=== PATIENT | female | born 1975 | race Caucasian/White ===

== ENCOUNTER → 2017-02-20 | Outpatient (CLI) | payer OTHER ==
--- NOTE | 2017-02-20 21:47 | CONS ---
DATE OF CONSULTATION: 02/20/2017 CONSULTATION/NEW PATIENT EVALUATION HISTORY OF PRESENT ILLNESS/SLEEP-WAKE EVALUATION: 42-year-old lady who has been evaluated in the sleep center for possible obstructive sleep apnea-hypopnea syndrome. SLEEP SCHEDULE: Patient's usual sleep schedule on working days is from 9:00 p.m. to 10:00 p.m. until 5:45/6:30 a.m., on weekends from around 11 to 12 midnight until 8 or 9:00 a.m. FALLING ASLEEP: No problem with falling asleep usually. No TV in bedroom. DURING SLEEP: Patient usually starts sleep in bed but then she has multiple awakenings from sleep to use restroom and after that she may have a problem to fall asleep in bed and she may sleep in the chair. During the sleep, according to her , and also during the eye surgery, she has been told that she has episodes of stopped breathing during sleep. DURING THE DAY/WAKE STATE: In the morning she wakes up tired, falling asleep during the day. Has problem with memory, concentration. [place] Sleepiness Scale increased to 10. She usually takes naps at noon on weekends because during working days she does not have time for the naps. PAST MEDICAL HISTORY: Positive for diabetes mellitus, gout. PAST SURGICAL HISTORY: 1. Cholecystectomy. 2. Breast reduction surgery. MEDICATIONS: 1. Metformin. 2. Glipizide. 3. Lisinopril. 4. Allopurinol. SOCIAL HISTORY: Positive for smoking about half pack a day for 20 years; quit about 2 years ago. Alcohol consumption: None. REVIEW OF SYSTEMS: Awakenings from sleep, sleepiness during the day. No fevers. No double vision. No recent chest pain. No shortness of breath. No abdominal pain. No bleeding episodes. No blood in urine. No seizure episodes. FAMILY HISTORY: Heart problems, sinus headaches, cancer. PHYSICAL EXAMINATION: GENERAL: lady without distress. VITAL SIGNS: BP 99/60, HR 89, RR 18, height 58-1/2 inches. Weight 263.01. BMI 54.0. Neck 16 inches in circumference. Temperature 98.3. Oxygen saturation at room air 95%. HEENT: PERRLA, EOMI evaluation of oropharynx practically, extremely low position of soft palate. NECK: Supple. No JVD. Thyroid is not palpable. LUNGS: Clear to percussion and to auscultation. Good air exchange. No wheezing or rhonchi. HEART: S1, S2 regular. No murmurs, gallops or rubs. ABDOMEN: Obese. Soft and nontender. Bowel sounds are present. No organomegaly appreciated. EXTREMITIES: No clubbing or cyanosis. AWNING CRAFTSPERSON: Awake, alert, and oriented x3. Cranial nerves 2 to 7 intact. There is no fasciculation or atrophy noted. No focal deficits observed. ASSESSMENT: 1. Witnessed episodes of stopped breathing during sleep, multiple awakenings from sleep, low position of soft palate, excessive sleepiness, [place] Sleepiness Scale increased to 10, obstructive sleep apnea-hypopnea syndrome. 2. Obesity, body mass index of 54.0. 3. ( ). PLAN: ( ) Sincerely, Jeremías Juan MD, PhD, FAASM. Diplomat of [place] [employer], Sleep Medicine Board by [place] [employer] [place] [employer] Energy Crop Farmer of [facility] [place]
--- NOTE | 2017-02-20 22:10 | CONS ---
DATE OF CONSULTATION: ADDENDUM: Add to impression: IMPRESSION: 1. Status post cholecystectomy. 2. Status post breast reduction. PLAN: 1. Polysomnography for evaluation of patient's breathing during sleep. 2. CPAP/BiPAP titration if sleep study confirms obstructive sleep apnea-hypopnea syndrome. 3. Preferable position during sleep on the side. 4. No driving if patient feels any sleepiness. Patient is aware of civil and criminal liability for unsafe driving. 5. I will see patient for follow-up visit to explain results of the testing and following plan. Thank you very much for referring this patient for consultation. Sincerely, Jeremías Juan MD, PhD, FAASM. Diplomat of [place] [employer], Sleep Medicine Board by [place] [employer] [employer] Breakdown Person of [facility] [place]
== END ==
LOC: SLEEP 16:25
PROVIDERS: ATTEND Internal Medicine
DX: G47.33 Obstructive sleep apnea (adult) (pediatric) (principal); E66.9 Obesity, unspecified; Z79.899 Other long term (current) drug therapy; Z87.891 Personal history of nicotine dependence; Z98.890 Other specified postprocedural states; Z90.49 Acquired absence of other specified parts of digestive tract
CPT/HCPCS: 99211

== ENCOUNTER → 2017-07-10 | Outpatient (CLI) | payer OTHER ==
--- NOTE | 2017-07-10 22:51 | PN ---
PROGRESS NOTE DATE OF SERVICE: 07/10/2017 This patient is a 42-year-old lady who has been followed in the sleep center for treatment of obstructive sleep apnea/hypopnea syndrome. Diagnostic sleep study showed obstructive sleep apnea with apnea-hypopnea index 10 and oxygen desaturation to 83.9%. I discussed the results of the sleep studies with the patient in detail. She had CPAP titration, and with titration her respiration was normalized. She received her CPAP unit at home with a pressure of 9 cm of water, but she had difficulties with the usage of the machine. She does not like it. She does not like the mask. She does not feel comfortable with that. She used it only for 1 night. The patient is preparing for bariatric surgery, and treatment with CPAP is recommended as a part of preparation for bariatric surgery ( ) obstructive sleep apnea. MEDICATIONS: 1. Allopurinol. 2. Lisinopril. 3. Glipizide. 4. Metformin. PHYSICAL EXAM: This patient is a 42-year-old lady without distress. VITAL SIGNS: BP 102/72, HR 94, RR 16, weight 264, temperature 98.3, oxygen saturation at room air 96%. HEENT: PERRLA, EOMI. Evaluation of oropharynx showed tongue protrudes midline; extremely low position of soft palate. NECK: Supple. No JVD. Thyroid is not palpable. LUNGS: Clear to percussion and to auscultation. Good air exchange. No wheezing or rhonchi. HEART: S1, S2 irregularly irregular. ABDOMEN: Obese. EXTREMITIES: No clubbing or cyanosis. SOCIAL GROUP WORKER: Awake, alert and oriented x3. Cranial nerves 2 to 7 intact. There is no fasciculation or atrophy noted. No focal deficits observed. IMPRESSION: 1. Mild obstructive sleep apnea-hypopnea syndrome, apnea-hypopnea index 10 with oxygen desaturation to 83.9%. The patient cannot use the machine at the present time because it does not feel comfortable for her. 2. Obesity.0 Patient is preparing for bariatric surgery. 3. Diabetes mellitus. 4. History of gout. PLAN: 1. I again discussed with the patient the recommendation to use the machine every night because it is necessary at the present time as a part of preparation for bariatric surgery. 2. I will decrease pressure down to 6 cm of water, possibly to make it more comfortable for the patient to use CPAP. 3. Sleep hygiene with regular time in bed for at least 8 hours. 4. Prescription to continue trial with CPAP for another 3 months. 5. No driving if feeling any sleepiness. 6. We discussed with the patient different types of masks which we could use, and it looks like the one she has now is her preference. Thank you very much for allowing me to participate in the management of your patient. Sincerely, Jeremías Juan MD, PhD, FAASM Diplomat of [place] [employer] [place] [employer] Medicine Validation Architect of [facility] [place] MMODL / YG: [id number] /
== END | disposition home or self-care (01) ==
LOC: SLEEP 15:07
PROVIDERS: ATTEND Internal Medicine
DX: G47.33 Obstructive sleep apnea (adult) (pediatric) (principal); E66.9 Obesity, unspecified; E11.9 Type 2 diabetes mellitus without complications; Z79.899 Other long term (current) drug therapy

== ENCOUNTER → 2017-12-27 | Outpatient (CLI) | payer OTHER ==
[2017-12-27 12:23] LABS: Basophils # (A) 0.1 k/uL (0-0.2); Basophils % (A) 1 %; Eosinophils % (A) 0 %; HCT 39.1 % (34.0-46.0); HGB 12.8 gm/dL (11.4-16.0); Lymphocytes # (A) 3.1 k/uL (1.0-4.8); Lymphocytes % (A) 31 %; MCH 29.5 pg (25.0-35.0); MCHC 32.7 g/dL (31.0-37.0); MCV 90.4 fL (80.0-100.0); Mean Platelet Volume 6.5; Monocytes # (A) 0.6 k/uL (0-1.0); Monocytes % (A) 6 %; Neutrophils % (A) 61 %; Platelet Count 299 k/uL (150-450); RBC 4.33 m/uL (3.80-5.40); WBC 9.9 k/uL (3.8-10.6)
[2017-12-27 12:32] LABS: ALT 37 U/L (9-52); AST 28 U/L (14-36); Alkaline Phosphatase 111 U/L (38-126); Anion Gap 13 mmol/L; Blood Urea Nitrogen 11 mg/dL (7-17); Calcium 9.6 mg/dL (8.4-10.2); Carbon Dioxide 25 mmol/L (22-30); Chloride 103 mmol/L (98-107); Cholesterol 166 mg/dL (<200); Glucose 143 mg/dL (74-99); HDL Cholesterol 39 mg/dL (40-60); Potassium 4.6 mmol/L (3.5-5.1); Sodium 141 mmol/L (137-145); Total Bilirubin 0.3 mg/dL (0.2-1.3); Uric Acid 5.7 mg/dL (3.7-7.4)
[2017-12-27 13:01] LABS: Triglycerides 587 mg/dL (<150)
[2017-12-27 20:13] LABS: Hemoglobin A1C 5.6 % (4.0-6.0)
== END | disposition home or self-care (01) ==
LOC: LABWHC1 11:11
PROVIDERS: ATTEND Family Medicine
DX: E11.65 Type 2 diabetes mellitus with hyperglycemia (principal); E78.2 Mixed hyperlipidemia; I10 Essential (primary) hypertension; Z71.3 Dietary counseling and surveillance; Z71.82 Exercise counseling; Z87.39 Personal history of other diseases of the musculoskeletal system and connective tissue
CPT/HCPCS: 36415; 80053; 80061; 82306; 83036; 83721; 84443; 84550; 85025

== ENCOUNTER → 2017-12-27 | Outpatient (CLI) | payer OTHER ==
--- NOTE | 2017-12-29 12:15 | MM ---
Reason for exam: screening (asymptomatic). Last mammogram was performed 2 years and 3 months ago. History: Family history of breast cancer in maternal aunt. Physical Findings: A clinical breast exam by your physician is recommended on an annual basis and results should be correlated with mammographic findings. MG Screening Mammo w CAD Bilateral CC, MLO, and XCCL view(s) were taken. Prior study comparison: September 18, 2015, mammogram, performed at [facility]. There are scattered fibroglandular densities. No suspicious abnormality. No significant changes when compared with prior studies. ASSESSMENT: Negative, BI-RAD 1 RECOMMENDATION: Routine screening mammogram of both breasts in 1 year.
== END | disposition home or self-care (01) ==
LOC: RADMAMWWP 11:08
PROVIDERS: ATTEND Obstetrics & Gynecology
DX: Z12.31 Encounter for screening mammogram for malignant neoplasm of breast (principal)
CPT/HCPCS: 77067

== ENCOUNTER 2019-01-07 14:00 | Emergency (ER) | payer OTHER ==
[2019-01-07 14:35] VITALS: RESP 18; TEMP 98.1
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
[2019-01-07] MEDS ORDERED: ACETAMINOPHEN TAB 325 MG TAB PO STA (15:51)
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
[2019-01-07 16:45] VITALS: BP 123/67; PULSE 64
== END 2019-01-07 16:33 | disposition home or self-care (01) ==
LOC: EC 14:00
DX: S29.012A Strain of muscle and tendon of back wall of thorax, initial encounter (principal); R51 Headache; M43.6 Torticollis; Z90.49 Acquired absence of other specified parts of digestive tract; Z98.890 Other specified postprocedural states; V49.49XA Driver injured in collision with other motor vehicles in traffic accident, initial encounter; Y92.410 Unspecified street and highway as the place of occurrence of the external cause; Y99.0 Civilian activity done for income or pay
CPT/HCPCS: 70450; 72070; 72125; 99284

== ENCOUNTER → 2019-01-25 | Outpatient (CLI) | payer OTHER ==
--- NOTE | 2019-01-25 10:17 | US ---
EXAMINATION TYPE: US transvaginal DATE OF EXAM: 01/25/2019 COMPARISON: OB Ultrasound 2008 CLINICAL HISTORY: R10.2 Pelvic Pain. Pt states LLQ pain that has recently subsided TECHNIQUE: Transvaginal (TV). Transvaginal sonographic images of the pelvis were acquired. Date of LMP: 01/06/2019 EXAM MEASUREMENTS: Uterus: 7.7 x 4.0 x 5.1 cm Endometrial Stripe: 0.9 cm Right Ovary: 2.4 x 1.8 x 2.7 cm Left Ovary: 3.2 x 2.2 x 3.1 cm 1. Uterus: Anteverted Heterogeneous, Nabothian cysts in cervix, cystic area left of endo= 0.6 x 0. 4 cm 2. Endometrium: wnl 3. Right Ovary: wnl 4. Left Ovary: Probable involuting cyst= 1.6 x 1.8 x 1.9 cm 5. Bilateral Adnexa: wnl 6. Posterior cul-de-sac: wnl Multiple small nabothian cysts are seen throughout the cervix on initial images. Uterus is heterogene ous. Endometrium is not suspiciously thickened for secretory phase of menstrual cycle. No free fluid is seen in pelvic cul-de-sac. Both ovaries are identified. Left ovary is slightly larger than right ovary. There is irregular rim-e nhancing rim hypervascular 1.8 cm hypoechoic lesion with central anechoic area favoring an involuting corpus luteal cyst from recent ovulation. No suspicious extraovarian adnexal masses are present. IMPRESSION: Suspect involuting 1.8 cm corpus luteal cyst.
--- NOTE | 2019-01-27 09:02 | MM ---
Reason for exam: screening (asymptomatic). Last mammogram was performed 1 year and 1 month ago. History: Family history of breast cancer in maternal aunt. Reductions of both breasts. Took hormonal contraceptives for 2 years. Physical Findings: A clinical breast exam by your physician is recommended on an annual basis and results should be correlated with mammographic findings. MG Screening Mammo w CAD Bilateral CC and MLO view(s) were taken. Prior study comparison: December 27, 2017, bilateral MG screening mammo w CAD. September 18, 2015, mammogram, performed at [facility]. There are scattered fibroglandular densities. No significant changes when compared with prior studies. ASSESSMENT: Negative, BI-RAD 1 RECOMMENDATION: Routine screening mammogram of both breasts in 1 year.
== END | disposition home or self-care (01) ==
LOC: RADUSWWP 08:44
PROVIDERS: ATTEND Family Medicine
DX: Z12.31 Encounter for screening mammogram for malignant neoplasm of breast (principal); R10.2 Pelvic and perineal pain
CPT/HCPCS: 76830; 77067

== ENCOUNTER → 2020-10-11 | Outpatient (CLI) | payer OTHER | END | disposition home or self-care (01) | LOC: LABWHC1 16:07 | PROVIDERS: ATTEND Emergency Medicine | DX: Z20.828 Contact with and (suspected) exposure to other viral communicable diseases (principal) | CPT/HCPCS: U0003; C9803 ==

== ENCOUNTER → 2021-06-13 | Outpatient (CLI) | payer OTHER ==
--- NOTE | 2021-06-13 10:48 | XR ---
EXAMINATION TYPE: XR foot complete LT DATE OF EXAM: 06/13/2021 COMPARISON: NONE HISTORY: Pain TECHNIQUE: Three views are submitted. FINDINGS: The osseous structures are intact. There is no acute fracture or dislocation. Joint spaces are p reserved. Soft tissue edema overlying the distal first digit. Calcaneal spurs noted. IMPRESSION: 1. No acute fracture or dislocation. If symptoms persist, follow-up exam in 7 to 10 days could be ob tained.
== END | disposition home or self-care (01) ==
LOC: RADXRMAIN 10:20
PROVIDERS: ATTEND Podiatrist Foot Surgery
DX: M79.672 Pain in left foot (principal)

== ENCOUNTER → 2021-06-25 | Outpatient (CLI) | payer OTHER ==
--- NOTE | 2021-06-27 13:45 | MM ---
Reason for exam: screening (asymptomatic). Last mammogram was performed 2 years and 5 months ago. History: Family history of breast cancer in maternal aunt. Reductions of both breasts. Took hormonal contraceptives for 2 years. Physical Findings: A clinical breast exam by your physician is recommended on an annual basis and results should be correlated with mammographic findings. MG Screening Mammo w CAD Bilateral CC, MLO, and XCCL view(s) were taken. CV view(s) were taken of the right breast. Prior study comparison: January 25, 2019, bilateral MG screening mammo w CAD. December 27, 2017, bilateral MG screening mammo w CAD. There are scattered fibroglandular densities. Stable benign calcifications left breast. There is no discrete abnormality. No significant changes when compared with prior studies. ASSESSMENT: Benign, BI-RAD 2 RECOMMENDATION: Routine screening mammogram of both breasts in 1 year.
== END | disposition home or self-care (01) ==
LOC: RADMAMWWP 09:15
PROVIDERS: ATTEND Family Medicine
DX: Z12.31 Encounter for screening mammogram for malignant neoplasm of breast (principal); Z79.3 Long term (current) use of hormonal contraceptives; Z80.3 Family history of malignant neoplasm of breast
CPT/HCPCS: 77067

== ENCOUNTER → 2021-12-25 | Outpatient (CLI) | payer OTHER ==
[2021-12-25 11:39] VITALS: BP 128/88; PULSE 90; RESP 16; TEMP 98.2; BMI 48.6
--- NOTE | 2021-12-25 13:33 | P.BASOAP ---
Subjective Progress Note Date: 12/25/21 Principal diagnosis: Morbid obesity Patient presents to the bariatric clinic for follow-up. She has not been seen by myself for quite some time. Patient had her sleeve gastrectomy performed in 2018 at [facility]. Patient had repair hiatal hernia done at that time as well. Initial weight 272. Patient got down to around 200 pounds. Currently weight has gone up lately to 241. Patient has had worsening reflux as well. Takes omeprazole 20 mg every morning. Denies dysphagia or vomiting. Says she is hungry sometimes soon after mealtime. Patient has not had recent labs done. No abdominal pain. Patient is worried her diabetes is coming back again. Objective - Vital Signs Vital signs: Vital Signs Temp 98.2 F 12/25/21 11:33 Pulse 90 12/25/21 11:33 Resp 16 12/25/21 11:33 BP 128/88 12/25/21 11:33 Pulse Ox Intake & Output 12/24/21 12/25/21 12/25/21 18:59 06:59 18:59 Weight 109.316 kg - Exam Abdomen: Soft, nontender, nondistended Assessment/Plan (1) Morbid obesity Narrative/Plan: 46-year-old female with morbid obesity. Patient's BMI has increased since her last visit. Patient has had worsening reflux as well. We'll check annual lab work at this time. Patient will increase her omeprazole to 20 mg twice a day. We'll schedule patient for upper endoscopy to evaluate for recurrent hiatal hernia or stricture formation. Patient is interested in conversion to gastric bypass. We'll consider tertiary care referral after upper endoscopy and lab work obtained. Plan: Date: 12/25/21 Initial Weight: 123.377 kg Initial BMI: 54.9 Current Weight: 109.316 kg Current BMI: 48.6 Type of Surgery: Vertical Sleeve Gastrectomy Total Volume in Band: Previous Volume: Volume Removed: Volume Added: Band Size:
[2021-12-25 18:20] LABS: HCT 39.4 % (37.2-46.3); HGB 12.9 g/dL (12.0-15.0); MCH 29.7 pg (27.0-32.0); MCHC 32.7 g/dL (32.0-37.0); MCV 90.6 fL (80.0-97.0); Mean Platelet Volume 9.7 fL (9.5-12.2); NRBC Per 100 WBC 0 /100 WBCS (0.0-0.0); Platelet Count 254 X 10*3/uL (140-440); RBC 4.35 X 10*6/uL (4.10-5.20); RDW 12.5 % (11.5-14.5); WBC 9.01 X 10*3/uL (4.50-10.00)
[2021-12-25 19:16] LABS: ALT 25 U/L (8-44); AST 23 U/L (13-35); African American GFR (CKD) 122.1 (60.0-200.0); Albumin 4.3 g/dL (3.8-4.9); Albumin/Globulin Ratio 1.65 (1.60-3.17); Alkaline Phosphatase 104 U/L (41-126); BUN/Creat Ratio 14.86 Ratio (12.00-20.00); Blood Urea Nitrogen 10.4 mg/dL (9.0-27.0); Carbon Dioxide 23.3 mmol/L (20.0-27.5); Chloride 98 mmol/L (96-109); Globulin 2.6 g/dL (1.6-3.3); Glucose 126 mg/dL (70-110); Iron 92 ug/dL (50-170); Non-African American GFR(CKD) 105.4 (60.0-200.0); Potassium 4.1 mmol/L (3.5-5.5); Sodium 135 mmol/L (135-145); Total Protein 6.9 g/dL (6.2-8.2)
[2021-12-25 19:43] LABS: Folate, Serum >20.00 ng/mL (4.40-31.00)
== END ==
LOC: BARWHC3 11:04
PROVIDERS: ATTEND Surgery
DX: E66.01 Morbid (severe) obesity due to excess calories (principal); E55.9 Vitamin D deficiency, unspecified; K90.89 Other intestinal malabsorption; K21.9 Gastro-esophageal reflux disease without esophagitis; Z98.84 Bariatric surgery status; Z68.42 Body mass index [BMI] 45.0-49.9, adult; Z79.899 Other long term (current) drug therapy
CPT/HCPCS: 84425; 80053; 82607; 82746; 83540; 85027; 82306; 83036; G0463; 99211

== ENCOUNTER 2022-01-15 10:52 | Day surgery (SDC) | payer OTHER ==
[2022-01-10 12:46] VITALS: BMI 48.4
[~2022-01-15 10:52] MED LIST: LACTATED RINGERS 1,000 ML IV SCH; LIDOCAINE 1% (10MG/ML) FOR IV START INTRADERMA PRN
[2022-01-15 11:21] VITALS: RESP 16; TEMP 97.5
[2022-01-15] MEDS ORDERED: LIDOCAINE 1% INJ 10MG/ML (20 ML MDV) ONE (11:38)
[2022-01-15] MEDS ORDERED: PROPOFOL 10 MG/ML 20 ML VIAL IV ONE (11:38)
[2022-01-15 11:43] LABS: Glucose,Whole Blood 112 mg/dL (75-99)
--- NOTE | 2022-01-15 11:43 | P.GSHP ---
History of Present Illness H&P Date: 01/15/22 Chief Complaint: GERD 46-year-old female here today for upper endoscopy. Please refer to recent bariatric clinic note. Patient with history of prior sleeve gastrectomy and hiatal hernia repair. Patient has had weight gain as well. Taking omeprazole once daily. Past Medical History Past Medical History: GERD/Reflux History of Any Multi-Drug Resistant Organisms: None Reported Past Surgical History: Bariatric Surgery, Breast Surgery, Cholecystectomy Additional Past Surgical History / Comment(s): breast reduction. sleeve gastrectomy 2018 [facility]. EGD Past Anesthesia/Blood Transfusion Reactions: No Reported Reaction Smoking Status: Former smoker - Past Family History Mother Family Medical History: No Reported History Medications and Allergies Home Medications Medication Instructions Recorded Confirmed Type Omeprazole 20 mg PO DAILY 12/25/21 01/15/22 History Allergies Allergy/AdvReac Type Severity Reaction Status Date / Time No Known Allergies Allergy Verified 01/15/22 11:12 Surgical - Exam Vital Signs Temp Pulse Resp BP Pulse Ox 97.5 F L 78 16 136/60 95 01/15/22 11:08 01/15/22 11:08 01/15/22 11:08 01/15/22 11:08 01/15/22 11:08 Physical exam: General: Well-developed, well-nourished HEENT: Normocephalic, sclerae nonicteric Abdomen: Nontender, nondistended Extremities: No edema Neuro: Alert and oriented Assessment and Plan (1) GERD (gastroesophageal reflux disease) Narrative/Plan: Will proceed with upper endoscopy at this time. Current Visit: Yes Status: Acute Code(s): K21.9 - GASTRO-ESOPHAGEAL REFLUX DISEASE WITHOUT ESOPHAGITIS SNOMED Code(s): 182531915
--- NOTE | 2022-01-15 11:50 | P.PCN ---
Date of Procedure: 01/15/22 Procedure(s) Performed: Preoperative Dx: GERD Postoperative Dx: Mild gastritis, post sleeve gastrectomy, small hiatal hernia suspected Procedure: EGD with Bx Anesthesia: Sedation Endoscopist: Dr. Choudhary Specimens: Antrum Endoscopic Procedure: The patient was on the endoscopy table in the left decubitus position. The Olympus gastroscope was inserted into the oropharynx and passed under direct visualization to the region of the third portion of the duodenum. From that point the scope was slowly withdrawn inspecting all surfaces carefully. There were no neoplastic inflammatory or polypoid lesions throughout the duodenum. The pylorus was widely patent. The stomach was carefully inspected. There was mild gastritis present. A biopsy of the antrum took place to rule out H. pylori. Retroflexion could not be performed because of the prior sleeve gastrectomy. The GE junction was visualized as we were looking down the esophagus and appeared to be 1.5-2 cm above the diaphragmatic hiatus. Difficult to visualize the exact location of the hiatus given the patient's prior sleeve gastrectomy. There were no inflammatory changes throughout the esophagus. The patient was then taken to the recovery room in stable condition per anesthesia guidelines. Recommendations: Await biopsy results. Will order CT chest to better evaluate for possible recurrent hiatal hernia.
[2022-01-15 11:57] VITALS: BP 126/84; PULSE 83
== END 2022-01-15 12:42 | disposition home or self-care (01) ==
LOC: ORWHC2ENDO 10:52
PROVIDERS: ATTEND Surgery
DX: K29.50 Unspecified chronic gastritis without bleeding (principal); K21.9 Gastro-esophageal reflux disease without esophagitis; Z98.84 Bariatric surgery status; Z98.890 Other specified postprocedural states; Z87.891 Personal history of nicotine dependence; Z79.899 Other long term (current) drug therapy; E66.9 Obesity, unspecified; Z68.42 Body mass index [BMI] 45.0-49.9, adult
CPT/HCPCS: 81025; 88305; 43239; J2001; J2704

== ENCOUNTER → 2022-09-12 | Outpatient (CLI) | payer OTHER ==
[2022-09-12 15:30] LABS: ALT 15 U/L (8-44); AST 17 U/L (13-35); Albumin 4.4 g/dL (3.8-4.9); Albumin/Globulin Ratio 1.41 (1.60-3.17); Alkaline Phosphatase 86 U/L (41-126); Bilirubin, Conjugated <0.20 mg/dL (0.20-0.40); Chol/HDL Ratio 4.93 Ratio; Globulin 3.1 g/dL (1.6-3.3); LDL Cholesterol,Calculated 127.8 mg/dL (0.0-131.0); Total Protein 7.6 g/dL (6.2-8.2)
== END | disposition home or self-care (01) ==
LOC: LABWHC1 10:14
PROVIDERS: ATTEND Internal Medicine Gastroenterology
DX: E66.01 Morbid (severe) obesity due to excess calories (principal)
CPT/HCPCS: 36415; 80061; 80076; 82306; 83036

== ENCOUNTER → 2023-06-02 | Outpatient (CLI) | payer OTHER ==
--- NOTE | 2023-06-02 14:59 | MM ---
Reason for Exam: Screening (asymptomatic). Last mammogram was performed 2 year(s) and 0 month(s) ago. Patient History: Menarche at age 13. First Full-Term at age 26. Patient used Hormonal Contraceptives for 2 years. Bilateral Reduction. Maternal aunt had breast cancer. Last menstrual period: 05/13/2023 Risk Values: Rayna 5 year model risk: 0.8%. NCI Lifetime model risk: 9.3%. Prior Study Comparison: 12/27/2017 Bilateral Screening Mammogram, [facility]. 01/25/2019 Bilateral Screening Mammogram, [facility]. 06/25/2021 Bilateral Screening Mammogram, [facility]. Tissue Density: There are scattered fibroglandular densities. Findings: Analyzed By CAD. There is no suspicious group of microcalcifications or new suspicious mass in either breast. Overall Assessment: Negative, BI-RAD 1 Management: Screening Mammogram of both breasts in [address] [facility] will attempt to contact patient to return for supplemental views and ultrasound if indicated. Patient should continue monthly self-breast exams. A clinical breast exam by your physician is recommended on an annual basis. This exam should not preclude additional follow-up of suspicious palpable abnormalities. Note on Rayna scores and lifetime risk: 1. A Rayna score greater than 3% is considered moderate risk. If this is the case, consider specialist referral to assess eligibility for a risk reducing agent. 2. If overall lifetime risk for the development of breast cancer is 20% or higher, the patient may qualify for future screening with alternating mammogram and breast MRI. Electronically signed and approved by: Maxime Connelly DO
== END | disposition home or self-care (01) ==
LOC: RADMAMWWP 07:58
PROVIDERS: ATTEND Family Medicine
DX: Z12.31 Encounter for screening mammogram for malignant neoplasm of breast (principal); Z80.3 Family history of malignant neoplasm of breast
CPT/HCPCS: 77063; 77067

== ENCOUNTER → 2024-06-15 | Outpatient (CLI) | payer BC ==
--- NOTE | 2024-07-02 20:42 | MM ---
Reason for Exam: Screening (asymptomatic). Last screening mammogram was performed 12 month(s) ago. Patient History: Menarche at age 13. First Full-Term at age 26. Patient used Hormonal Contraceptives for 2 years. Bilateral Reduction. Maternal aunt had breast cancer. Risk Values: Rayna 5 year model risk: 0.9%. NCI Lifetime model risk: 9.2%. Prior Study Comparison: 01/25/2019 Bilateral Screening Mammogram, [facility]. 06/25/2021 Bilateral Screening Mammogram, [facility]. 06/02/2023 Bilateral MG 3D screening mammo w/cad, [facility]. Tissue Density: There are scattered areas of fibroglandular density. Findings: Analyzed By CAD. There is no suspicious group of microcalcifications or new suspicious mass in either breast. Overall Assessment: Negative, BI-RAD 1 Management: Screening Mammogram of both breasts in 1 year. . Patient should continue monthly self-breast exams. A clinical breast exam by your physician is recommended on an annual basis. This exam should not preclude additional follow-up of suspicious palpable abnormalities. Note on Rayna scores and lifetime risk: 1. A Rayna score greater than 3% is considered moderate risk. If this is the case, consider specialist referral to assess eligibility for a risk reducing agent. 2. If overall lifetime risk for the development of breast cancer is 20% or higher, the patient may qualify for future screening with alternating mammogram and breast MRI. Electronically signed and approved by: Bean Garcia M.D. Radiologist
== END | disposition home or self-care (01) ==
LOC: RADMAMWWP 16:44
PROVIDERS: ATTEND Family Medicine
DX: Z12.31 Encounter for screening mammogram for malignant neoplasm of breast (principal); Z80.3 Family history of malignant neoplasm of breast; R92.323 Mammographic fibroglandular density, bilateral breasts
CPT/HCPCS: 77063; 77067

== ENCOUNTER 2024-10-24 11:20 | Emergency (ER) | payer BC ==
--- NOTE | 2024-10-24 11:39 | ED ---
General Adult HPI - General Chief complaint: Abdominal Pain Stated complaint: L flank pain Time Seen by Provider: 10/24/24 11:38 Source: patient, RN notes reviewed Mode of arrival: ambulatory Limitations: no limitations - History of Present Illness Initial comments: Quick note: 49-year-old female presents to the emergency department for evaluation of left side pain. Patient states that this started this morning when she woke up. She also notes blood in her urine but is unsure if it is menstrual related. Denies urinary frequency or burning with urination. Denies nausea, vomiting. Denies fever. - Related Data Home Medications Medication Instructions Recorded Confirmed Omeprazole 20 mg PO DAILY 12/25/21 01/15/22 Previous Rx's Medication Instructions Recorded HYDROcodone/APAP 5-325MG [Beatty 5] 1 each PO Q6HR PRN #12 tab 10/24/24 Ketorolac [Toradol] 10 mg PO Q8HR #15 tab 10/24/24 Tamsulosin [Flomax] 0.4 mg PO DAILY #7 cap 10/24/24 Allergies Allergy/AdvReac Type Severity Reaction Status Date / Time Penicillins Allergy Rash/Hives Verified 10/24/24 11:25 Review of Systems ROS Statement: Those systems with pertinent positive or pertinent negative responses have been documented in the HPI. ROS Other: All systems not noted in ROS Statement are negative. Past Medical History Past Medical History: GERD/Reflux History of Any Multi-Drug Resistant Organisms: None Reported Past Surgical History: Bariatric Surgery, Breast Surgery, Cholecystectomy Additional Past Surgical History / Comment(s): breast reduction. sleeve gastrectomy 2018 [facility]. EGD Past Anesthesia/Blood Transfusion Reactions: No Reported Reaction Past Psychological History: No Psychological Hx Reported Smoking Status: Former smoker Past Alcohol Use History: None Reported Past Drug Use History: Marijuana - Past Family History Mother Family Medical History: No Reported History General Exam - General Exam Comments Initial Comments: Visual Physical Exam Vital signs reviewed General: Well-appearing, nontoxic, no acute distress. Head: Normocephalic, atraumatic Eyes: PERRLA, EOMI ENT: Airway patent Chest: Nonlabored breathing Skin: No visual rash, normal skin tone Neuro: Alert and oriented 3 Musculoskeletal: No gross abnormalities Limitations: no limitations Course Vital Signs 10/24/24 10/24/24 11:22 14:37 Temperature 98.2 F 98.1 F Pulse Rate 71 70 Respiratory 20 18 Rate Blood Pressure 142/87 123/76 O2 Sat by Pulse 97 99 Oximetry Medical Decision Making - Medical Decision Making Quick note preformed and electronically signed by ELLIOT Masters-C Was pt. sent in by a medical professional or institution (ELLIOT Rosario, [facility], urgent care, hospital, or detention...) When possible be specific @ -[No] Did you speak to anyone other than the patient for history (EMS, parent, family, police, friend...)? What history was obtained from this source @ -[No] Did you review nursing and triage notes (agree or disagree)? Why? @ -[I reviewed and agree with nursing and triage notes] Were old charts reviewed (outside hosp., previous admission, EMS record, old EKG, old radiological studies, urgent care reports/EKG's, detention records)? Report findings @ -[No old charts were reviewed] Differential Diagnosis (chest pain, altered mental status, abdominal pain women, abdominal pain men, vaginal bleeding, weakness, fever, dyspnea, syncope, headache, dizziness, GI bleed, back pain, seizure, CVA, palpatations, mental health, musculoskeletal)? @ -[not applicable] EKG interpreted by me (3pts min.). @ -[As above] X-rays interpreted by me (1pt min.). @ -[None done] CT interpreted by me (1pt min.). @ -[None done] U/S interpreted by me (1pt. min.). @ -[None done] What testing was considered but not performed or refused? (CT, X-rays, U/S, labs)? Why? @ -[None] What meds were considered but not given or refused? Why? @ -[None] Did you discuss the management of the patient with other professionals (professionals i.e. E[facility] Rosario, [facility], lab, RT, psych nurse, social work administrator, installment account checker, teacher, marketing and communications officer, rn case management)? Give summary @ -[No] Was smoking cessation discussed for >3mins.? @ -[No] Was critical care preformed (if so, how long)? @ -[No] Were there social determinants of health that impacted care today? How? (Homelessness, low income, unemployed, alcoholism, drug addiction, transportation, low edu. Level, literacy, decrease access to med. care, assisted, rehab)? @ -[No] Was there de-escalation of care discussed even if they declined (Discuss DNR or withdrawal of care, Hospice)? DNR status @ -[No] What co-morbidities impacted this encounter? (DM, HTN, Smoking, COPD, CAD, Cancer, CVA, ARF, Chemo, Hep., AIDS, mental health diagnosis, sleep apnea, mor bid obesity)? @ -[None] Was patient admitted / discharged? Hospital course, mention meds given and route, prescriptions, significant lab abnormalities, going to OR and other pertinent info. @ -[hospital course] Undiagnosed new problem with uncertain prognosis? @ -[No] Drug Therapy requiring intensive monitoring for toxicity (Heparin, Nitro, Insulin, Cardizem)? @ -[No] Were any procedures done? @ -[No] Diagnosis/symptom? @ -[default] Acute, or Chronic, or Acute on Chronic? @ -[default] Uncomplicated (without systemic symptoms) or Complicated (systemic symptoms)? @ -[default] Side effects of treatment? @ -[No] Exacerbation, Progression, or Severe Exacerbation? @ -[No] Poses a threat to life or bodily function? How? (Chest pain, [place], [place], pneumonia, PE, COPD, DKA, ARF, appy, cholecystitis, CVA, Diverticulitis, Homicidal, Suicidal, threat to staff... and all critical care pts) @ -[No] - Lab Data Result diagrams: 10/24/24 12:10/24/24 12:02 Lab Results 10/24/24 10/24/24 10/24/24 Range/Units 12:02 12:02 13:26 WBC 9.1 (3.8-10.6) k/uL RBC 4.88 (3.80-5.40) m/uL Hgb 14.7 (11.4-16.0) gm/dL Hct 44.2 (34.0-46.0) % MCV 90.5 (80.0-100.0) fL MCH 30.1 (25.0-35.0) pg MCHC 33.3 (31.0-37.0) g/dL RDW 12.0 (11.5-15.5) % Plt Count 263 (150-450) k/uL MPV 7.1 Neutrophils % 64 % Lymphocytes % 26 % Monocytes % 7 % Eosinophils % 1 % Basophils % 1 % Neutrophils # 5.8 (1.3-7.7) k/uL Lymphocytes # 2.4 (1.0-4.8) k/uL Monocytes # 0.6 (0-1.0) k/uL Eosinophils # 0.1 (0-0.7) k/uL Basophils # 0.1 (0-0.2) k/uL Sodium 139 (137-145) mmol/L Potassium 4.5 (3.5-5.1) mmol/L Chloride 108 H (98-107) mmol/L Carbon Dioxide 18 L (22-30) mmol/L Anion Gap 13 mmol/L BUN 13 (7-17) mg/dL Creatinine 0.83 (0.52-1.04) mg/dL Est GFR (CKD-EPI)AfAm >90 (>60 ml/min/1.73 sqM) Est GFR (CKD-EPI)NonAf 85 (>60 ml/min/1.73 sqM) Glucose 128 H (74-99) mg/dL Calcium 10.0 (8.4-10.2) mg/dL Total Bilirubin 0.8 (0.2-1.3) mg/dL AST 24 (14-36) U/L ALT 24 (4-34) U/L Alkaline Phosphatase 81 (38-126) U/L Total Protein 8.0 (6.3-8.2) g/dL Albumin 5.0 (3.5-5.0) g/dL Amylase 90 (30-110) U/L Lipase 334 H (23-300) U/L Urine Color Light Yellow Urine Appearance Clear (Clear) Urine pH 5.5 (5.0-8.0) Ur Specific [place] 1.015 (1.001-1.035) Urine Protein Negative (Negative) Urine Glucose (UA) Negative (Negative) Urine Ketones Trace H (Negative) Urine Blood Large H (Negative) Urine Nitrite Negative (Negative) Urine Bilirubin Negative (Negative) Urine Urobilinogen <2.0 (<2.0) mg/dL Ur Leukocyte Esterase Negative (Negative) Urine RBC 33 H (0-5) /hpf Urine WBC 3 (0-5) /hpf Ur Squamous Epith Cells 2 (0-4) /hpf Calcium Oxalate Crystal Rare H (None) /hpf Urine Mucus Moderate H (None) /hpf Urine HCG, Qual (Not Detectd) 10/24/24 Range/Units 13:26 WBC (3.8-10.6) k/uL RBC (3.80-5.40) m/uL Hgb (11.4-16.0) gm/dL Hct (34.0-46.0) % MCV (80.0-100.0) fL MCH (25.0-35.0) pg MCHC (31.0-37.0) g/dL RDW (11.5-15.5) % Plt Count (150-450) k/uL MPV Neutrophils % % Lymphocytes % % Monocytes % % Eosinophils % % Basophils % % Neutrophils # (1.3-7.7) k/uL Lymphocytes # (1.0-4.8) k/uL Monocytes # (0-1.0) k/uL Eosinophils # (0-0.7) k/uL Basophils # (0-0.2) k/uL Sodium (137-145) mmol/L Potassium (3.5-5.1) mmol/L Chloride (98-107) mmol/L Carbon Dioxide (22-30) mmol/L Anion Gap mmol/L BUN (7-17) mg/dL Creatinine (0.52-1.04) mg/dL Est GFR (CKD-EPI)AfAm (>60 ml/min/1.73 sqM) Est GFR (CKD-EPI)NonAf (>60 ml/min/1.73 sqM) Glucose (74-99) mg/dL Calcium (8.4-10.2) mg/dL Total Bilirubin (0.2-1.3) mg/dL AST (14-36) U/L ALT (4-34) U/L Alkaline Phosphatase (38-126) U/L Total Protein (6.3-8.2) g/dL Albumin (3.5-5.0) g/dL Amylase (30-110) U/L Lipase (23-300) U/L Urine Color Urine Appearance (Clear) Urine pH (5.0-8.0) Ur Specific [place] (1.001-1.035) Urine Protein (Negative) Urine Glucose (UA) (Negative) Urine Ketones (Negative) Urine Blood (Negative) Urine Nitrite (Negative) Urine Bilirubin (Negative) Urine Urobilinogen (<2.0) mg/dL Ur Leukocyte Esterase (Negative) Urine RBC (0-5) /hpf Urine WBC (0-5) /hpf Ur Squamous Epith Cells (0-4) /hpf Calcium Oxalate Crystal (None) /hpf Urine Mucus (None) /hpf Urine HCG, Qual Not Detected (Not Detectd) Disposition Clinical Impression: Nephrolithiasis Disposition: HOME SELF-CARE Condition: Stable Instructions (If sedation given, give patient instructions): Kidney Stones (ED) Additional Instructions: Please strain your urine. Utilize the pain medication as needed. Follow up with urology. Return to the emergency department for new or worsening symptoms. Prescriptions: Tamsulosin [Flomax] 0.4 mg PO DAILY #7 cap HYDROcodone/APAP 5-325MG [Beatty 5] 1 each PO Q6HR PRN #12 tab PRN Reason: Pain Ketorolac [Toradol] 10 mg PO Q8HR #15 tab Is patient prescribed a controlled substance at d/c from ED?: No Referrals: Cee Mejia MD [Primary Care Provider] - 1-2 days Drake Nicole MD [STAFF PHYSICIAN] - 1-2 days
[2024-10-24 12:11] LABS: Basophils # (A) 0.1 k/uL (0-0.2); Basophils % (A) 1 %; Eosinophils # (A) 0.1 k/uL (0-0.7); Eosinophils % (A) 1 %; HCT 44.2 % (34.0-46.0); HGB 14.7 gm/dL (11.4-16.0); Lymphocytes # (A) 2.4 k/uL (1.0-4.8); Lymphocytes % (A) 26 %; MCH 30.1 pg (25.0-35.0); MCHC 33.3 g/dL (31.0-37.0); MCV 90.5 fL (80.0-100.0); Mean Platelet Volume 7.1; Monocytes # (A) 0.6 k/uL (0-1.0); Monocytes % (A) 7 %; Neutrophils # (A) 5.8 k/uL (1.3-7.7); Neutrophils % (A) 64 %; Platelet Count 263 k/uL (150-450); RBC 4.88 m/uL (3.80-5.40); WBC 9.1 k/uL (3.8-10.6)
[2024-10-24 12:39] LABS: ALT 24 U/L (4-34); AST 24 U/L (14-36); African American GFR (CKD) >90 (>60 ml/min/1.73 sqM); Alkaline Phosphatase 81 U/L (38-126); Amylase 90 U/L (30-110); Blood Urea Nitrogen 13 mg/dL (7-17); Carbon Dioxide 18 mmol/L (22-30); Chloride 108 mmol/L (98-107); Glucose 128 mg/dL (74-99); Lipase 334 U/L (23-300); Non-African American GFR(CKD) 85 (>60 ml/min/1.73 sqM); Total Bilirubin 0.8 mg/dL (0.2-1.3)
[2024-10-24 12:48] LABS: Anion Gap 13 mmol/L; Potassium 4.5 mmol/L (3.5-5.1); Sodium 139 mmol/L (137-145)
--- NOTE | 2024-10-24 13:12 | CT ---
EXAMINATION TYPE: CT abdomen pelvis wo con DATE OF EXAM: 10/24/2024 12:21 PM COMPARISON: None. CLINICAL INDICATION: Female, 49 years old with history of abdominal pain; left flank pain TECHNIQUE: Axial CT abdomen pelvis wo con;Sagittal and coronal reformats were created on a separate workstation. Contrast used: mL of , (none if empty) Oral contrast used: without Oral Contrast (none if empty) CT DLP: 781.9 mGycm, Automated exposure control for dose reduction was used. FINDINGS: LOWER CHEST: The heart is prominent in size. ABDOMEN LIVER: Unremarkable GALLBLADDER AND BILE DUCTS: The gallbladder is surgically absent. PANCREAS: Unremarkable. SPLEEN: Unremarkable. ADRENAL GLANDS: Unremarkable. KIDNEYS AND URETERS: Mild left hydroureteronephrosis secondary to 4 x 6 mm obstructing calculus at th e ureteropelvic junction. No additional calculi. No right hydronephrosis. Nonobstructing 3 mm right c alculus. Left simple appearing renal cysts PELVIS BLADDER: No evidence for wall thickening or mass given limitations of exam. REPRODUCTIVE: Unremarkable. ABDOMEN & PELVIS STOMACH AND BOWEL: No evidence of bowel obstruction. Postsurgical changes in the gastric lumen. The a ppendix is normal. PERITONEUM/RETROPERITONEUM: No evidence of pneumoperitoneum or free fluid. VASCULATURE: No evidence of aortic aneurysm. MUSCULOSKELETAL: No acute osseous abnormalities LYMPH NODES: No gross evidence for lymphadenopathy. SOFT TISSUE/ABDOMINAL WALL: Unremarkable IMPRESSION: Mild left hydroureteronephrosis secondary to 4 x 6 mm obstructing calculus at the ureteropelvic junct ion. [facility], , 10/24/2024 1:09 PM
[2024-10-24 14:39] VITALS: RESP 18
[2024-10-24 14:58] LABS: Appearance,Urine Clear (Clear); Bilirubin,Urine Negative (Negative); Blood,Urine Large (Negative); Calcium Oxalate Crystals,Urine Rare /hpf; Color,Urine Light Yellow; Glucose,Urine (UA) Negative (Negative); Ketones,Urine Trace (Negative); Leukocyte Esterase,Urine Negative (Negative); Mucus,Urine Moderate /hpf; Nitrite,Urine Negative (Negative); PH, Urine 5.5 (5.0-8.0); Protein,Urine Negative (Negative); RBC,Urine 33 /hpf (0-5); Specific Gravity,Urine 1.015 (1.001-1.035); Squamous Epithelial Cell,Urine 2 /hpf (0-4); Urobilinogen,Urine <2.0 mg/dL (<2.0); WBC,Urine 3 /hpf (0-5)
[2024-10-24 15:54] VITALS: BP 132/84; PULSE 78; TEMP 98
== END 2024-10-24 15:53 | disposition home or self-care (01) ==
LOC: EC 11:20
DX: N13.2 Hydronephrosis with renal and ureteral calculous obstruction (principal); Z88.0 Allergy status to penicillin; Z87.891 Personal history of nicotine dependence
CPT/HCPCS: 36415; 74176; 80053; 81001; 81025; 82150; 83690; 85025; 99284